=== PATIENT | male | born 1965 | race Hispanic/Latino ===

== ENCOUNTER → 2023-10-03 16:17 | Outpatient (REF) | payer BC, SELFPAY ==
[2023-10-03 17:51] LABS: PSA, Total - Diagnostic 3.69 ng/ml (0.0-4.0)
== END ==
LOC: REG 16:17
PROVIDERS: ATTENDING PHYSICIAN Specialist
DX: R97.20 Elevated prostate specific antigen [PSA] (principal)
CPT/HCPCS: 84153

== ENCOUNTER → 2023-10-25 09:15 | Outpatient (REF) | payer BC, SELFPAY | LOC: DHSLP 09:15 | PROVIDERS: ATTENDING PHYSICIAN Internal Medicine Critical Care Medicine; FAMILY PHYSICIAN Internal Medicine | DX: G47.33 Obstructive sleep apnea (adult) (pediatric) (principal); G47.31 Primary central sleep apnea; R09.02 Hypoxemia | CPT/HCPCS: 95811 ==

== ENCOUNTER 2025-02-03 06:24 | Day surgery (SDC) | payer BC, SELFPAY ==
[2025-02-03 12:17] LABS: Glucose - Point of Care 82 mg/dl (70-99)
== END 2025-02-03 14:06 | disposition home or self-care (01) ==
LOC: GI 06:24
PROVIDERS: ATTENDING PHYSICIAN Student in an Organized Health Care Education/Training Program
DX: K92.1 Melena (principal); R10.13 Epigastric pain; Z98.84 Bariatric surgery status; Z98.0 Intestinal bypass and anastomosis status; K22.89 Other specified disease of esophagus; K29.50 Unspecified chronic gastritis without bleeding
CPT/HCPCS: 43239; 88305; 82962; 88342

== ENCOUNTER → 2025-02-10 12:57 | Outpatient (REF) | payer BC, SELFPAY | LOC: DHSLP 12:57 | PROVIDERS: ATTENDING PHYSICIAN Internal Medicine Critical Care Medicine; FAMILY PHYSICIAN Internal Medicine | DX: G47.33 Obstructive sleep apnea (adult) (pediatric) (principal) | CPT/HCPCS: 95811 ==

== ENCOUNTER 2025-03-30 06:21 | Day surgery (SDC) | payer BC, SELFPAY ==
[2025-03-30 09:04] LABS: Glucose - Point of Care 91 mg/dl (70-99)
== END 2025-03-30 11:04 | disposition home or self-care (01) ==
LOC: GI 06:21
PROVIDERS: ATTENDING PHYSICIAN Student in an Organized Health Care Education/Training Program
DX: Z12.11 Encounter for screening for malignant neoplasm of colon (principal); K57.30 Diverticulosis of large intestine without perforation or abscess without bleeding; R10.13 Epigastric pain; K22.89 Other specified disease of esophagus; K31.7 Polyp of stomach and duodenum; K92.1 Melena; K44.9 Diaphragmatic hernia without obstruction or gangrene; K31.89 Other diseases of stomach and duodenum; D12.3 Benign neoplasm of transverse colon; D12.4 Benign neoplasm of descending colon; E75.5 Other lipid storage disorders; Z98.84 Bariatric surgery status; Z98.0 Intestinal bypass and anastomosis status; Z86.0100 Personal history of colon polyps, unspecified
CPT/HCPCS: 43251; 45385; 43239; 82962; 88305; 88342

== ENCOUNTER 2025-08-10 06:26 | Day surgery (SDC) | payer BC, SELFPAY ==
[2025-08-10 09:03] LABS: Glucose - Point of Care 97 mg/dl (70-99)
== END 2025-08-10 10:00 | disposition home or self-care (01) ==
LOC: GI 06:26
PROVIDERS: ATTENDING PHYSICIAN Student in an Organized Health Care Education/Training Program; FAMILY PHYSICIAN Hospitalist
DX: Z12.11 Encounter for screening for malignant neoplasm of colon (principal); Z86.0101 Personal history of adenomatous and serrated colon polyps
CPT/HCPCS: G0105; 82962

== ENCOUNTER 2025-08-11 06:26 | Day surgery (SDC) | payer BC, SELFPAY ==
[2025-08-11 10:43] LABS: Glucose - Point of Care 93 mg/dl (70-99)
== END 2025-08-11 12:22 | disposition home or self-care (01) ==
LOC: GI 06:26
PROVIDERS: ATTENDING PHYSICIAN Internal Medicine Gastroenterology
DX: Z12.11 Encounter for screening for malignant neoplasm of colon (principal); K57.30 Diverticulosis of large intestine without perforation or abscess without bleeding; K64.9 Unspecified hemorrhoids; D12.3 Benign neoplasm of transverse colon; K63.5 Polyp of colon; Z98.0 Intestinal bypass and anastomosis status; Z86.0100 Personal history of colon polyps, unspecified
CPT/HCPCS: 45380; 82962; 88305